=== PATIENT | male | born 1965 | race Caucasian/White ===

== ENCOUNTER 2021-04-21 09:29 | Emergency (ER) | payer OTHER ==
[~2021-04-21] VITALS: Ht 180.3 cm; Wt 99.1 kg
[2021-04-21] MEDS ORDERED: PANTOPRAZOLE 40 MG (PROTONIX) VIAL IV STA (10:13)
[2021-04-21] MEDS ORDERED: KETOROLAC 30 MG/ML VIAL IVP STA (10:13)
[2021-04-21] MEDS ORDERED: NS IV 1000 ML 1,000 ML IV STA (10:13)
[2021-04-21] MEDS ORDERED: KETOROLAC 30 MG/ML VIAL ONE (10:21)
[2021-04-21 10:27] LABS: BASOPHILS % (AUTO) 1 % (0-10); EOSINOPHILS # (AUTO) 0.4 10^3/uL (0.0-0.3); EOSINOPHILS % (AUTO) 6 % (0-10); HEMATOCRIT 51 % (40-54); HEMOGLOBIN 17.5 G/DL (13.3-17.7); LYMPHOCYTES # (AUTO) 1.9 X 10^3 (1.0-4.0); LYMPHOCYTES % (AUTO) 29 % (12-44); MEAN CORPUSCULAR HEMOGLOBIN 31 PG (25-34); MEAN CORPUSCULAR HGB CONC 34 G/DL (32-36); MEAN CORPUSCULAR VOLUME 90 FL (80-99); MEAN PLATELET VOLUME 11.1 FL (7.4-10.4); MONOCYTES # (AUTO) 0.3 X 10^3 (0.0-1.0); MONOCYTES % (AUTO) 4 % (0-12); NEUTROPHILS # (AUTO) 3.8 X 10^3 (1.8-7.8); NEUTROPHILS % (AUTO) 60 % (42-75); PLATELET COUNT 187 10^3/uL (130-400); WHITE BLOOD COUNT 6.3 10^3/uL (4.3-11.0)
--- NOTE | 2021-04-21 10:31 | ED GI ---
General Chief Complaint: Abdominal/GI Problems Stated Complaint: DIARRHEA Nursing Triage Note: PT C/O DIARRHEA SINCE TUESDAY NIGHT. PT REPORTS STOOL BEGAN BLACK AND NOW IS WATERY. PT REPORTS TAKING IMMODIUM HAS SLOWED DIARRHEA SOME. PT REPORTS DIARRHEA AND NAUSEA. PT HAS HX OF POLYPS. PT REPORTS THIS FEELS LIKE "STOMACH FLU." Source of Information: Patient History of Present Illness Date Seen by Provider: Apr 21, 2021 Time Seen by Provider: 09:41 Initial Comments 56 yo male presenting with complaint of diarrhea since Tuesday. He feels like he has raw irritated stomach. He has nausea but no vomiting. He has previously had a colonoscopy which helps. He did have some black stools but now it is just watery. He has some blood when he wipes to clean himself. He started taking Imodium which has slowed his diarrhea some. He feels like he has a stomach flu. His and child at home did not have any issues. He had called the clinic and they advised him to come to the emergency department to be evaluated. He denies any pain or burning with urination. He has had no fever or chills. Timing/Duration: 2-3 Days Severity/Quality: Burning, Cramping Location: Epigastric Radiation: Epigastric Modifying Factors: Worsens With Movement, Worsens With Palpation Associated Symptoms: No Back Pain, No Chest Pain, No Diaphoresis, No Fever/Chills, No Fatigue, No Headache; Heartburn, Nausea/Vomiting; No Rash, No Shortness of Air, No Swelling/Mass in Abdomen, No Syncope, No Weakness Allergies and Home Medications Allergies Coded Allergies: Penicillins (Unverified Allergy, Unknown, Rash, 04/21/21) Patient Home Medication List Home Medication List Reviewed: Yes Review of Systems Review of Systems Constitutional: see HPI; No chills, No fever EENTM: No Symptoms Reported Respiratory: No Symptoms Reported Cardiovascular: No Symptoms Reported Gastrointestinal: See HPI Genitourinary: No Symptoms Reported Musculoskeletal: no symptoms reported Skin: no symptoms reported Psychiatric/Neurological: No Symptoms Reported Past Mtkvymj-Znyirq-Nkgjke Hx Patient Social History Tobacco Use?: Yes Tobacco type used: Cigarettes Smoking Status: Current Everyday Smoker Substance use?: No Pt feels they are or have been: No Immunizations Up To Date First/Initial COVID19 Vaccinat: 02/27 COVID19 Vaccine [place] Net: j&j Past Medical History Surgeries: No Respiratory: No Cardiac: No Neurological: No Genitourinary: No Gastrointestinal: Yes Polyps Musculoskeletal: No Endocrine: No HEENT: No Psychosocial: No Physical Exam Vital Signs Vital Signs - First Documented 04/21/21 09:38 Temp 36.7 Pulse 80 Resp 18 B/P (MAP) 131/86 (101) Pulse Ox 98 O2 Delivery Room Air Capillary Refill : Less Than 3 Seconds Height/Weight/BMI Height: '" Weight: lbs. oz. kg; 30.00 BMI Method: General Appearance: WD/WN, no apparent distress HEENT: PERRL/EOMI, pharynx normal Neck: non-tender, full range of motion, supple, normal inspection Respiratory: chest non-tender, lungs clear, normal breath sounds Cardiovascular: normal peripheral pulses, regular rate, rhythm Gastrointestinal: normal bowel sounds, soft, no pulsatile mass; No distended, No guarding, No rebound; tenderness (epigastric) Rectal: deferred Extremities: normal range of motion, non-tender, normal capillary refill Back: normal inspection, no CVA tenderness Neurologic/Psychiatric: alert, oriented x 3 Skin: normal color, warm/dry Images 1 - diffuse abdominal soreness but more tender in epigastric area with palpation Progress/Results/Core Measures Results/Orders Lab Results Laboratory Tests Test 04/21/21 09:50 04/21/21 10:40 Range/Units White Blood Count 6.3 4.3-11.0 10^3/uL Red Blood Count 5.70 4.35-5.85 10^6/uL Hemoglobin 17.5 13.3-17.7 G/DL Hematocrit 51 40-54 % Mean Corpuscular Volume 90 80-99 FL Mean Corpuscular Hemoglobin 31 25-34 PG Mean Corpuscular Hemoglobin Concent 34 32-36 G/DL Red Cell Distribution Width 12.6 10.0-14.5 % Platelet Count 187 130-400 10^3/uL Mean Platelet Volume 11.1 H 7.4-10.4 FL Immature Granulocyte % (Auto) 0 % Neutrophils (%) (Auto) 60 42-75 % Lymphocytes (%) (Auto) 29 12-44 % Monocytes (%) (Auto) 4 0-12 % Eosinophils (%) (Auto) 6 0-10 % Basophils (%) (Auto) 1 0-10 % Neutrophils # (Auto) 3.8 1.8-7.8 X 10^3 Lymphocytes # (Auto) 1.9 1.0-4.0 X 10^3 Monocytes # (Auto) 0.3 0.0-1.0 X 10^3 Eosinophils # (Auto) 0.4 H 0.0-0.3 10^3/uL Basophils # (Auto) 0.0 0.0-0.1 10^3/uL Immature Granulocyte # (Auto) 0.0 0.0-0.1 10^3/uL Sodium Level 137 135-145 MMOL/L Potassium Level 3.8 3.6-5.0 MMOL/L Chloride Level 104 98-107 MMOL/L Carbon Dioxide Level 23 21-32 MMOL/L Anion Gap 10 5-14 MMOL/L Blood Urea Nitrogen 7 7-18 MG/DL Creatinine 1.08 0.60-1.30 MG/DL Estimat Glomerular Filtration Rate > 60 BUN/Creatinine Ratio 6 Glucose Level 123 H 70-105 MG/DL Calcium Level 9.7 8.5-10.1 MG/DL Corrected Calcium 9.5 8.5-10.1 MG/DL Total Bilirubin 0.4 0.1-1.0 MG/DL Aspartate Amino Transf (AST/SGOT) 15 5-34 U/L Alanine Aminotransferase (ALT/SGPT) 17 0-55 U/L Alkaline Phosphatase 102 40-136 U/L Total Protein 7.1 6.4-8.2 GM/DL Albumin 4.2 3.2-4.5 GM/DL Lipase 27 8-78 U/L Urine Color YELLOW Urine Clarity SL CLOUDY Urine pH 6.5 5-9 Urine Specific [place] 1.025 H 1.016-1.022 Urine Protein NEGATIVE NEGATIVE Urine Glucose (UA) NEGATIVE NEGATIVE Urine Ketones NEGATIVE NEGATIVE Urine Nitrite NEGATIVE NEGATIVE Urine Bilirubin NEGATIVE NEGATIVE Urine Urobilinogen 0.2 < = 1.0 MG/DL Urine Leukocyte Esterase NEGATIVE NEGATIVE Urine RBC (Auto) NEGATIVE NEGATIVE Urine RBC RARE /HPF Urine WBC NONE /HPF Urine Squamous Epithelial Cells RARE /HPF Urine Crystals NONE /LPF Urine Bacteria NEGATIVE /HPF Urine Casts NONE /LPF Urine Mucus NEGATIVE /LPF Urine Culture Indicated NO My Orders Orders - LAURA MARCUS MD Comprehensive Metabolic Panel (04/21/21 10:13) Lipase (04/21/21 10:13) Ua Culture If Indicated (04/21/21 10:13) Ed Iv/Invasive Line Start (04/21/21 10:13) Cbc With Automated Diff (04/21/21 10:13) Ct Abdomen/Pelvis W (04/21/21 10:13) Ns Iv 1000 Ml (Sodium Chloride 0.9%) (04/21/21 10:13) Pantoprazole Injection (Protonix Injecti (04/21/21 10:13) Ketorolac Injection (Toradol Injection) (04/21/21 10:13) Ketorolac Injection (Toradol Injection) (04/21/21 10:21) Fecal Wbc (04/21/21 10:29) Isolation Central Supply Req (04/21/21 10:29) Iohexol Injection (Omnipaque 350 Mg/Ml 1 (04/21/21 10:45) Received Contrast (Hold Metformin- Contr (04/21/21 10:45) Sodium Chloride Flush (Catheter Flush Sy (04/21/21 10:45) Ns (Ivpb) (Sodium Chloride 0.9% Ivpb Bag (04/21/21 10:45) Medications Given in ED Current Medications Medications Dose Ordered Sig/[place] Route Start Time Stop Time Status Last Admin Dose Admin Iohexol 100 ml ONCE ONCE IV 04/21/21 10:45 04/21/21 10:46 DC 04/21/21 10:54 100 ML Sodium Chloride 10 ml NEEDED PRN IV 04/21/21 10:45 04/21/21 12:22 DC 04/21/21 10:54 10 ML Sodium Chloride 100 ml ONCE ONCE IV 04/21/21 10:45 04/21/21 10:46 DC 04/21/21 10:54 80 ML Vital Signs/I&O 04/21/21 04/21/21 09:38 12:15 Temp 36.7 36.7 Pulse 80 65 Resp 18 18 B/P (MAP) 131/86 (101) 130/91 (101) Pulse Ox 98 99 O2 Delivery Room Air Room Air Blood Pressure Mean: 101 Progress Progress Note #1: Progress Note Check labs, CT and give IV fluids with Protonix for his symptoms. Progress Note #2: Progress Note Labs are stable without acute significant normality. His CT scan shows no acute significant normality either. His symptoms are improved with fluids and Protonix. Counseled to follow-up with clinic and keep pushing fluids. Continue to take medicine for stomach inflammation and gastritis. Counseled on follow-up and return precautions. Diagnostic Imaging Diagonstic Imaging: CT Plain Films/CT/US/NM/MRI: abdomen, pelvis Comments NAME: CARLOS BUSTAMANTE [facility] REC#: [id number] PT STATUS: REG ER : 1965 PHYSICIAN: LAURA MARCUS MD ADMIT DATE: 04/21/21/ER FS Draft Date of Exam:04/21/21 CT ABDOMEN/PELVIS W PROCEDURE: CT abdomen and pelvis with contrast. TECHNIQUE: Multiple contiguous axial images were obtained through the abdomen and pelvis after administration of intravenous contrast. Auto Exposure Controls were utilized during the CT exam to meet ALARA standards for radiation dose reduction. All CT scans use one or more of the following dose optimizing techniques: automated exposure control, MA and/or KvP adjustment based on patient size and exam type or iterative reconstruction. INDICATION: Abdominal pain with cramping and diarrhea There is no previous study for comparison. There is mild low-density in the liver indicating steatosis. No gallbladder, pancreatic, adrenal gland or splenic abnormality is identified. May be small hiatal hernia. Occasional small cortical cysts are present in the kidneys. These measure up to approximately 1 cm in size. There is no hydronephrosis. There is no evidence of bowel dilatation. No obstruction is identified. There is no evidence of free fluid within within the peritoneal space. No pathologic adenopathy is identified. IMPRESSION: Probable hepatic steatosis without evidence of acute abnormality within the abdomen or pelvis. Dictated on workstation # [id number] Dict: 04/21/21 1116 Trans: 04/21/21 1125 [id number] Interpreted by: AMADOU LEWIS MD Electronically signed by: Departure Impression Primary Impression: Diarrhea Qualified Codes: R19.7 - Diarrhea, unspecified Additional Impressions: Gastroenteritis Gastritis Qualified Codes: K29.00 - Acute gastritis without bleeding Disposition: HOME, SELF-CARE Condition: Stable Departure-Patient Inst. Decision time for Depature: 12:11 Referrals: KARSON DELONG (PCP) Primary Care Physician NO,LOCAL PHYSICIAN (Family) Primary Care Physician Patient Instructions: [place] Diet, Diarrhea, Adult ED, Gastritis ED Add. Discharge Instructions: Keep drinking plenty of fluids and stay well hydrated Use Prilosec, Prevacid, Nexium or medicine like that to help with stomach and gut irritation. Take it for at least 1-2 weeks. Follow up with clinic for continued problems and return or seek care for worsening symptoms. All discharge instructions reviewed with patient and/or family. Voiced understanding. Work/School Note: Work Release Form Date Seen in the Emergency Department: Apr 21, 2021 Return to Work: Apr 24, 2021 Restrictions: No Restrictions LAURA MARCUS MD Apr 21, 2021 10:31
[2021-04-21 10:37] LABS: ALANINE AMINOTRANSFERASE 17 U/L (0-55); ALBUMIN 4.2 GM/DL (3.2-4.5); ALKALINE PHOSPHATASE 102 U/L (40-136); BILIRUBIN,TOTAL 0.4 MG/DL (0.1-1.0); BUN/CREATININE RATIO 6; CALCIUM 9.7 MG/DL (8.5-10.1); CARBON DIOXIDE 23 MMOL/L (21-32); CHLORIDE 104 MMOL/L (98-107); CREATININE SERUM 1.08 MG/DL (0.60-1.30); GFR ESTIMATED > 60; GLUCOSE 123 MG/DL (70-105); LIPASE 27 U/L (8-78); POTASSIUM 3.8 MMOL/L (3.6-5.0); SODIUM 137 MMOL/L (135-145); TOTAL PROTEIN 7.1 GM/DL (6.4-8.2)
[2021-04-21] MEDS ORDERED: IOHEXOL 350 MG/ML 100 ML (OMNIPAQUE 350) VIAL IV ONE (10:45)
[2021-04-21] MEDS ORDERED: HOLD METFORMIN - RECEIVED CONTRAST 20 ML VIAL IV SCH (10:45)
[2021-04-21] MEDS ORDERED: CATHETER FLUSH 10 ML SYR IV PRN (10:45)
[2021-04-21] MEDS ORDERED: NS 100 ML (IVPB) BAG IV ONE (10:45)
[2021-04-21 10:49] LABS: BILIRUBIN,URINE NEGATIVE (NEGATIVE); CLARITY,URINE SL CLOUDY; COLOR,URINE YELLOW; GLUCOSE, URINE (UA) NEGATIVE (NEGATIVE); KETONES,URINE NEGATIVE (NEGATIVE); LEUKOCYTE ESTERASE ,URINE NEGATIVE (NEGATIVE); NITRITE,URINE NEGATIVE (NEGATIVE); PH,URINE 6.5 (5-9); PROTEIN,URINE NEGATIVE (NEGATIVE)
[2021-04-21 11:00] LABS: BACTERIA,URINE NEGATIVE /HPF; RBC,URINE RARE /HPF; SQUAMOUS EPITHELIAL CELL,UR RARE /HPF
--- NOTE | 2021-04-21 11:26 | Diagnostic Imaging Report ---
PROCEDURE: CT abdomen and pelvis with contrast. TECHNIQUE: Multiple contiguous axial images were obtained through the abdomen and pelvis after administration of intravenous contrast. Auto Exposure Controls were utilized during the CT exam to meet ALARA standards for radiation dose reduction. All CT scans use one or more of the following dose optimizing techniques: automated exposure control, MA and/or KvP adjustment based on patient size and exam type or iterative reconstruction. INDICATION: Abdominal pain with cramping and diarrhea There is no previous study for comparison. There is mild low-density in the liver indicating steatosis. No gallbladder, pancreatic, adrenal gland or splenic abnormality is identified. May be small hiatal hernia. Occasional small cortical cysts are present in the kidneys. These measure up to approximately 1 cm in size. There is no hydronephrosis. There is no evidence of bowel dilatation. No obstruction is identified. There is no evidence of free fluid within within the peritoneal space. No pathologic adenopathy is identified. IMPRESSION: Probable hepatic steatosis without evidence of acute abnormality within the abdomen or pelvis. Dictated by: Dictated on workstation # [id number]
[2021-04-21 12:15] VITALS: BP 130/91
== END 2021-04-21 12:15 | disposition home or self-care (01) ==
LOC: ER FS 09:32
DX: K52.9 Noninfective gastroenteritis and colitis, unspecified (principal); K29.70 Gastritis, unspecified, without bleeding; F17.210 Nicotine dependence, cigarettes, uncomplicated
CPT/HCPCS: 36415; 74177; 80053; 81000; 83690; 85025

== ENCOUNTER 2021-12-14 10:42 | Emergency (ER) | payer OTHER ==
[~2021-12-14] VITALS: Ht 180 cm; Wt 100.0 kg
--- NOTE | 2021-12-14 10:49 | ED Chest Pain ---
General Stated Complaint: CHEST PAIN History of Present Illness Date Seen by Provider: Dec 14, 2021 Time Seen by Provider: 10:49 Initial Comments 56 yr M with PMH of COPD is here with c/o left sided chest pain and SOB which began last night. Pt did take his inhalers but it did not help much. Patient states the chest pain and shortness of breath occur simultaneously, and has been coming and going. Patient thinks his inhaler strength may need to be increased. Denies fever and chills, abdominal pain, nausea and vomiting, headache, dizziness, cough or other URI symptoms. No known sick contacts. Patient smokes about 10 cigarettes a day. No known cardiac history. Pt smokes 10 cigarettes a day, but has not smoked since he started having SOB. Allergies and Home Medications Allergies Coded Allergies: Penicillins (Unverified Allergy, Unknown, Rash, 04/21/21) Patient Home Medication List Home Medication List Reviewed: Yes Albuterol/Ipratropium (Combivent Respimat Inhal [place]) 4 Gm Aero, 2 PUFF IH Q4H PRN for SHORTNESS OF BREATH Prescribed by: IVONNE BORGES MD on 12/14/21 1228 Ipratropium/Albuterol Sulfate (Iprat-Albut 0.5-3(2.5) mg/3 ml) 3 Ml Ampul.neb, 3 ML IH Q6H PRN for SHORTNESS OF BREATH Prescribed by: IVONNE BORGES MD on 12/14/21 1228 Nicotine (Nicotine Patch) 1 Each Patch.dysq, 14 MG TD DAILY Prescribed by: IVONNE BORGES MD on 12/14/21 1230 Prednisone (Prednisone) 20 Mg Tab, 40 MG PO DAILY Prescribed by: IVONNE BORGES MD on 12/14/21 1228 Review of Systems Review of Systems Constitutional: no symptoms reported EENTM: No Symptoms Reported Respiratory: Shortness of Air Cardiovascular: Chest Pain Gastrointestinal: No Symptoms Reported Genitourinary: No Symptoms Reported Musculoskeletal: no symptoms reported Skin: no symptoms reported Psychiatric/Neurological: No Symptoms Reported Endocrine: No Symptoms Reported Hematologic/Lymphatic: No Symptoms Reported Past Doifijx-Zcufxe-Lxecqq Hx Past Medical History Surgeries: No Respiratory: No Cardiac: No Neurological: No Genitourinary: No Gastrointestinal: Yes Polyps Musculoskeletal: No Endocrine: No HEENT: No Psychosocial: No Physical Exam Vital Signs Vital Signs - First Documented 12/14/21 11:11 Temp 35.6 Pulse 77 Resp 20 B/P (MAP) 136/101 (113) Pulse Ox 95 O2 Delivery Room Air Capillary Refill : Height, Weight, BMI Height: '" Weight: lbs. oz. kg; 30.00 BMI Method: General Appearance: Mild Distress HEENT: PERRL/EOMI, TMs Normal, Normal ENT Inspection, Pharynx Normal Neck: Full Range of Motion, Normal Inspection, Non Tender, Supple Respiratory: Chest Non Tender, Normal Breath Sounds, No Accessory Muscle Use, No Respiratory Distress, Rhonci, Wheezing (mild expiatory wheezing) Cardiovascular: Regular Rate, Rhythm, No Edema Gastrointestinal: Normal Bowel Sounds, Non Tender, Soft Extremity: Normal Capillary Refill, Normal Inspection, Normal Range of Motion, No Calf Tenderness Neurologic/Psychiatric: Oriented x3, No Motor/Sensory Deficits Skin: Normal Color Lymphatic: No Adenopathy Progress/Results/Core Measures Results/Orders Lab Results Laboratory Tests Test 12/14/21 10:48 Range/Units White Blood Count 6.3 4.3-11.0 10^3/uL Red Blood Count 5.45 4.30-5.52 10^6/uL Hemoglobin 16.6 13.3-17.7 g/dL Hematocrit 48 40-54 % Mean Corpuscular Volume 89 80-99 fL Mean Corpuscular Hemoglobin 31 25-34 pg Mean Corpuscular Hemoglobin Concent 34 32-36 g/dL Red Cell Distribution Width 12.7 10.0-14.5 % Platelet Count 191 130-400 10^3/uL Mean Platelet Volume 11.0 9.0-12.2 fL Immature Granulocyte % (Auto) 0 % Neutrophils (%) (Auto) 52 42-75 % Lymphocytes (%) (Auto) 38 12-44 % Monocytes (%) (Auto) 5 0-12 % Eosinophils (%) (Auto) 4 0-10 % Basophils (%) (Auto) 1 0-10 % Neutrophils # (Auto) 3.2 1.8-7.8 10^3/uL Lymphocytes # (Auto) 2.4 1.0-4.0 10^3/uL Monocytes # (Auto) 0.3 0.0-1.0 10^3/uL Eosinophils # (Auto) 0.2 0.0-0.3 10^3/uL Basophils # (Auto) 0.1 0.0-0.1 10^3/uL Immature Granulocyte # (Auto) 0.0 0.0-0.1 10^3/uL Prothrombin Time 12.8 12.2-14.7 SEC INR Comment 0.9 0.8-1.4 Activated Partial Thromboplast Time 32 24-35 SEC D-Dimer 0.41 0.00-0.49 UG/ML Sodium Level 140 135-145 MMOL/L Potassium Level 3.8 3.6-5.0 MMOL/L Chloride Level 103 98-107 MMOL/L Carbon Dioxide Level 25 21-32 MMOL/L Anion Gap 12 5-14 MMOL/L Blood Urea Nitrogen 12 7-18 MG/DL Creatinine 1.26 0.60-1.30 MG/DL Estimat Glomerular Filtration Rate 68 BUN/Creatinine Ratio 10 Glucose Level 78 70-105 MG/DL Calcium Level 9.6 8.5-10.1 MG/DL Corrected Calcium 9.3 8.5-10.1 MG/DL Total Bilirubin 0.3 0.1-1.0 MG/DL Aspartate Amino Transf (AST/SGOT) 13 5-34 U/L Alanine Aminotransferase (ALT/SGPT) 16 0-55 U/L Alkaline Phosphatase 112 40-136 U/L Troponin I < 0.30 <0.30 NG/ML Total Protein 7.4 6.4-8.2 GM/DL Albumin 4.4 3.2-4.5 GM/DL My Orders Orders - IVONNE BORGES MD Cbc With Automated Diff (12/14/21 10:53) Comprehensive Metabolic Panel (12/14/21 10:53) Albuterol/Ipra Inhalation Soln (Duoneb I (12/14/21 11:00) Chest Pa/Lat (2 View) (12/14/21 10:53) Ekg Tracing (12/14/21 10:53) O2 (12/14/21 10:53) Ed Iv/Invasive Line Start (12/14/21 10:53) Monitor-Rhythm Ecg Trace Only (12/14/21 10:53) Svn Small Volume Nebulizer (12/14/21 10:53) Protime With Inr (12/14/21 10:53) Partial Thromboplastin Time (12/14/21 10:53) O2 (12/14/21 10:53) Aspirin Chewable Tablet (Baby Aspirin Ch (12/14/21 11:00) Ed Iv/Invasive Line Start (12/14/21 10:53) Troponin I Fs (12/14/21 10:53) Methylprednisolone Sod Succ (Solu-Medrol (12/14/21 10:53) Fibrin Degradation Products (12/14/21 10:53) Albuterol/Ipra Inhalation Soln (Duoneb I (12/14/21 12:00) Svn Small Volume Nebulizer (12/14/21 11:51) Medications Given in ED Current Medications Medications Dose Ordered Sig/Olinda Route Start Time Stop Time Status Last Admin Dose Admin Albuterol/ Ipratropium 3 ml ONCE ONCE INH 12/14/21 11:00 12/14/21 11:01 DC 12/14/21 11:04 3 ML Albuterol/ Ipratropium 3 ml ONCE ONCE INH 12/14/21 12:00 12/14/21 12:01 DC 12/14/21 11:55 3 ML Aspirin 324 mg ONCE ONCE PO 12/14/21 11:00 12/14/21 11:01 DC 12/14/21 11:04 324 MG Vital Signs/I&O 12/14/21 11:11 Temp 35.6 Pulse 77 Resp 20 B/P (MAP) 136/101 (113) Pulse Ox 95 O2 Delivery Room Air Progress Progress Note : Progress Note 1.ACUTE COPD EXACERBATION: - CXR : COPD - Labs unremarkable - Troponin normal - ASA 324mg STAT - Duo Neb STAT x 3. Pt much improved after nebs and steroids - Solumedrol 125mgiv STAT -Follow-up with PCP -Smoking cessation advised strongly. Nicotine patch prescription given. - DuoNeb inhaler prescription and DuoNeb solution for neb machine given. Prednisone 40mg daily for 4 days -The patient was seen in the ED, and treated appropriately to presentation at a specific point in time. Patient is informed that there is a possibility that disease and illness can evolve and change in acuity rapidly or slowly after patient is discharged from the ER. Precautionary advice given to the patient for immediate return to ER if symptoms worsen or do not resolve, and to seek emergency care sooner rather than later. Pt also advised on the importance of PCP follow up and compliance with management and follow up plan. Pt verbally expressed understanding. Initial ECG Impression Date: Dec 14, 2021 Initial ECG Impression Time: 10:48 Initial ECG Rate: 67 Initial ECG Rhythm: Normal Sinus Initial ECG Intervals: Normal Initial ECG Impression: Normal EKG : EKG Time: 10:48 Diagnostic Imaging Diagonstic Imaging: Xray Plain Films/CT/US/NM/MRI: chest Comments [facility] [place] NAME: CARLOS BUSTAMANTE [facility] REC#: [id number] PT STATUS: REG ER : 1965 PHYSICIAN: IVONNE BORGES MD ADMIT DATE: 12/14/21/ER FS Signed Date of Exam:12/14/21 CHEST PA/LAT (2 VIEW) EXAMINATION: Chest, two views. HISTORY: SOB. COMPARISON: None available. FINDINGS: Heart size and pulmonary vasculature are normal. The lungs are clear without consolidation, pleural effusion, or pneumothorax. The osseous structures are intact. IMPRESSION: 1. No acute radiographic abnormality in the chest. Dictated by: Dictated on workstation # [id number] Dict: 12/14/21 1111 Trans: 12/14/21 1120 [id number] Interpreted by: CARLOS MARTINEZ DO Electronically signed by: CARLOS MARTINEZ DO 12/14/21 1120 Departure Impression Primary Impression: Acute exacerbation of chronic obstructive pulmonary disease (COPD) Additional Impression: Smoker Disposition: 01 HOME, SELF-CARE Condition: Improved Departure-Patient Inst. Referrals: KARSON DELONG (PCP) Primary Care Physician NO,[facility] PHYSICIAN (Family) Primary Care Physician Patient Instructions: Quitting Smoking, Inhalers, Exacerbation of COPD (DC), Oral Steroid Medicines Add. Discharge Instructions: -Follow-up with PCP -Smoking cessation advised strongly. Nicotine patch prescription given. - DuoNeb inhaler prescription and DuoNeb solution for neb machine given. -The patient was seen in the ED, and treated appropriately to presentation at a specific point in time. Patient is informed that there is a possibility that disease and illness can evolve and change in acuity rapidly or slowly after patient is discharged from the ER. Precautionary advice given to the patient for immediate return to ER if symptoms worsen or do not resolve, and to seek emergency care sooner rather than later. Pt also advised on the importance of PCP follow up and compliance with management and follow up plan. Pt verbally expressed understanding. Scripts Nicotine (Nicotine Patch) 1 Each Patch.dysq 14 MG TD DAILY for 30 Days, #30 PATCH Prov: IVONNE BORGES MD 12/14/21 Prednisone (Prednisone) 20 Mg Tab 40 MG PO DAILY for 4 Days, TAB Prov: IVONNE BORGES MD 12/14/21 Ipratropium/Albuterol Sulfate (Iprat-Albut 0.5-3(2.5) mg/3 ml) 3 Ml Ampul.neb 3 ML IH Q6H PRN for SHORTNESS OF BREATH, #14 EACH Prov: IVONNE BORGES MD 12/14/21 Albuterol/Ipratropium (Combivent Respimat Inhal [place]) 4 Gm Aero 2 PUFF IH Q4H PRN for SHORTNESS OF BREATH for 30 Days, #1 EA Prov: IVONNE BORGES MD 12/14/21 IVONNE BORGES MD Dec 14, 2021 10:49
[2021-12-14] MEDS ORDERED: methylPREDNISolone 125 MG (Solu-MEDROL) VIAL IV STA (10:53)
[2021-12-14] MEDS ORDERED: ASPIRIN 81 MG CHEW (CHILDREN'S ASA) PO ONE (11:00)
[2021-12-14] MEDS ORDERED: RT-ALBUTEROL/IPRATROPIUM 3 ML (DUONEB) VIAL INH ONE ×2 (11:00→12:00)
--- NOTE | 2021-12-14 11:14 | Diagnostic Imaging Report ---
EXAMINATION: Chest, two views. HISTORY: SOB. COMPARISON: None available. FINDINGS: Heart size and pulmonary vasculature are normal. The lungs are clear without consolidation, pleural effusion, or pneumothorax. The osseous structures are intact. IMPRESSION: 1. No acute radiographic abnormality in the chest. Dictated by: Dictated on workstation # [id number]
[2021-12-14 11:21] LABS: INR 0.9 (0.8-1.4); PROTHROMBIN TIME PATIENT 12.8 SEC (12.2-14.7)
[2021-12-14 11:30] LABS: FIBRIN DEGRADATION PRODUCTS 0.41 UG/ML (0.00-0.49)
[2021-12-14 11:32] LABS: BASOPHILS # (AUTO) 0.1 10^3/uL (0.0-0.1); BASOPHILS % (AUTO) 1 % (0-10); EOSINOPHILS # (AUTO) 0.2 10^3/uL (0.0-0.3); EOSINOPHILS % (AUTO) 4 % (0-10); HEMATOCRIT 48 % (40-54); HEMOGLOBIN 16.6 g/dL (13.3-17.7); LYMPHOCYTES # (AUTO) 2.4 10^3/uL (1.0-4.0); LYMPHOCYTES % (AUTO) 38 % (12-44); MEAN CORPUSCULAR HEMOGLOBIN 31 pg (25-34); MEAN CORPUSCULAR HGB CONC 34 g/dL (32-36); MEAN CORPUSCULAR VOLUME 89 fL (80-99); MONOCYTES # (AUTO) 0.3 10^3/uL (0.0-1.0); MONOCYTES % (AUTO) 5 % (0-12); NEUTROPHILS # (AUTO) 3.2 10^3/uL (1.8-7.8); NEUTROPHILS % (AUTO) 52 % (42-75); PLATELET COUNT 191 10^3/uL (130-400); WHITE BLOOD COUNT 6.3 10^3/uL (4.3-11.0)
[2021-12-14 11:45] LABS: CARBON DIOXIDE 25 MMOL/L (21-32); CHLORIDE 103 MMOL/L (98-107); POTASSIUM 3.8 MMOL/L (3.6-5.0); SODIUM 140 MMOL/L (135-145)
[2021-12-14 11:46] LABS: ALANINE AMINOTRANSFERASE 16 U/L (0-55); ALBUMIN 4.4 GM/DL (3.2-4.5); ALKALINE PHOSPHATASE 112 U/L (40-136); BILIRUBIN,TOTAL 0.3 MG/DL (0.1-1.0); BUN/CREATININE RATIO 10; CALCIUM 9.6 MG/DL (8.5-10.1); CREATININE SERUM 1.26 MG/DL (0.60-1.30); GFR ESTIMATED 68; GLUCOSE 78 MG/DL (70-105); TOTAL PROTEIN 7.4 GM/DL (6.4-8.2)
[2021-12-14] MEDS ORDERED: IPRA3AMP31 IH (12:28)
[2021-12-14] MEDS ORDERED: PRD20T PO (12:28)
[2021-12-14] MEDS ORDERED: IPRA4AER IH (12:28)
[2021-12-14] MEDS ORDERED: NICO-533 TD (12:30)
[2021-12-14 12:45] VITALS: BP 124/86
== END 2021-12-14 12:45 | disposition home or self-care (01) ==
LOC: EDUNIT# 10:42 → ER FS 10:43
DX: J44.1 Chronic obstructive pulmonary disease with (acute) exacerbation (principal); F17.210 Nicotine dependence, cigarettes, uncomplicated
CPT/HCPCS: 36415; 71046; 80053; 84484; 85025; 85379; 85610; 85730; 93005

== ENCOUNTER → 2023-02-10 | Outpatient (CLI) | payer OTHER ==
[~2023-02-10] MED LIST: IPRA3AMP31 IH; IPRA4AER IH; NICO-533 TD; PRD20T PO
--- NOTE | 2023-02-10 10:44 | Diagnostic Imaging Report ---
Clinical indication: Patient with low back pain. Patient noticed back pain after hitting a yardwork. EXAM: MRI of the lumbar spine performed without IV contrast. Sequences include sagittal T2, sagittal T1, sagittal T2 fat-sat, and axial T2. COMPARISON: None. FINDINGS: There is no acute lumbar spine fracture or dislocation. There is minimal Modic type I degenerative signal changes anteriorly at the L3-L4 region anteriorly. The visualized portions of the distal thoracic spinal cord, conus medullaris, and cauda equina nerve roots are unremarkable. The conus medullaris tip is seen at the L1-L2 intervertebral level. There is an incompletely imaged at least 1.4 cm cyst involving the left kidney. There are small degenerative spurs involving the lumbar spine. L1-L2: There is a small right subarticular/left foraminal disk spur causing [id number] right neural foramen narrowing. There is no significant left neural foramen narrowing and minimal encroachment upon the central canal. L2-L3: There is mild lateral facet arthropathy. There is no significant central canal or neural foramen narrowing. L3-L4: There is no significant disk bulge. There is mild bilateral facet arthropathy. There is no significant central canal or neural foramen narrowing. L4-L5: There is a mild diffuse disk bulge with superimposed small disk herniation extending into the left foraminal region. There is also annular tear involving the left foraminal disk herniation component. There is moderate right neural foramen narrowing and moderate to severe left neural foramen narrowing. There is no significant central canal stenosis. There is moderate bilateral facet arthropathy. L5-S1: There is a small posterior disk protrusion/herniation with annular tear posteriorly. There is mild right neural foramen narrowing and no significant left neural foramen narrowing. There is no significant central canal stenosis. IMPRESSION: 1: There is an L4-L5 diffuse disk bulge with superimposed disk herniation extending into the left foraminal region. There is bilateral facet arthropathy. There is moderate to severe left neural foramen narrowing and moderate right neural foramen narrowing. There is no significant central canal stenosis. 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 Dictated by: Dictated on workstation # [id number]
== END ==
LOC: RAD 08:43
PROVIDERS: ATTEND Family Medicine
DX: M51.26 Other intervertebral disc displacement, lumbar region (principal); M47.816 Spondylosis without myelopathy or radiculopathy, lumbar region; M48.061 Spinal stenosis, lumbar region without neurogenic claudication; M48.07 Spinal stenosis, lumbosacral region
CPT/HCPCS: 72148